=== PATIENT | male | born 1955 | race Caucasian/White ===

== ENCOUNTER 2021-08-31 19:20 | Emergency (ER) | payer OTHER ==
[~2021-08-31] VITALS: Ht 182.9 cm; Wt 86.2 kg
[2021-08-31] MEDS ORDERED: OMEP20ER PO (21:04)
[2021-08-31] MEDS ORDERED: HYDCHL25 PO (21:04)
[2021-08-31] MEDS ORDERED: LISI20 PO (21:05)
[2021-08-31 23:41] LABS: Influenza A, PCR NEGATIVE (NEGATIVE); Influenza B, PCR NEGATIVE (NEGATIVE); Resp Syncytial Virus, PCR NEGATIVE (NEGATIVE); SARS-Cov-2 (COVID-19) PCR, MMC NEGATIVE (NEGATIVE)
== END 2021-08-31 23:28 | disposition short-term general hospital (02) ==
LOC: ER 19:20
PROVIDERS: Student in an Organized Health Care Education/Training Program
DX: T18.128A Food in esophagus causing other injury, initial encounter (principal); Z87.891 Personal history of nicotine dependence
CPT/HCPCS: 0241U; 70360; 93005; 93010; A9270; C9113; J1610; J2405